=== PATIENT | female | born 1955 | race Caucasian/White ===

== ENCOUNTER 2017-04-14 12:49 | Observation (INO) | payer MEDICARE, OTHER ==
[~2017-04-14] VITALS: Ht 154.9 cm; Wt 93.0 kg
[~2017-04-14 12:49] MED LIST: ALBUTERO1 IN; ALBUTEROL2.5 MG/3 M IN; ARIMIDEX1 MG PO; ASA/BUT/CAFF OR; AVELOX400 MG OR; CALCIUM + D600 MG PO; CARAFATE1 GM PO; CIPRO500 MG PO; CIPROFLOXACN500 MG PO; FOLIC ACID1 MG PO; GABAPENTIN300 MG PO; LISINOPRIL/HYDR1 TA1 PO; MEDDOSEPAK OR; METFORMIN500 MG OR; METRONIDAZOL500 MG PO; Metformin PO; NEURONTIN300 MG PO; NITROFURANTO100 MG OR; OMEPRAZOLE20 MG OR; PERCOCET 5/325M1 TAB OR; PRINZIDE1 TA1 OR; SIMVASTATIN20 MG PO; TAM75CAP OR; ULTRAM50 M1 PO; ZANTAC 150 PO; ZOFRAN ODT4 MG PO
[2017-04-14 14:12] LABS: IMMATURE GRANULOCYTES 0.7 % (0.0-1.0); MEAN CELL VOLUME 84.5 fL CALC (80.0-100.0); MEAN CORPUSCULAR HGB 26.8 pG CALC (26.0-32.0); MEAN CORPUSCULAR HGB CONC 31.7 g/L CALC (32.0-36.0); NEUT# 5.56 thou/uL (2.00-7.15); RED BLOOD COUNT 4.85 mill/uL (4.20-5.60); RED CELL DISTRI WIDTH 15.1 % (11.5-15.5)
[2017-04-14 14:27] LABS: ALBUMIN 3.6 g/dL (3.2-5.0); BILIRUBIN, TOTAL 0.5 mg/dL (0.0-1.4); CALCIUM 9.7 mg/dL (8.4-10.2); CREATININE 1.2 mg/dL (0.5-1.0); POTASSIUM 4.5 mmol/l (3.5-5.1); TOTAL PROTEIN 5.9 g/dL (6.3-8.2)
[2017-04-14 14:32] LABS: URINE BILIRUBIN - DIPSTICK NEGATIVE (NEGATIVE); URINE BLOOD DIPSTICK NEGATIVE (NEGATIVE); URINE CLARITY CLEAR; URINE COLOR YELLOW; URINE GLUCOSE - DIPSTICK NEGATIVE (NEGATIVE); URINE KETONE TRACE mg/dL (NEGATIVE); URINE LEUK ESTERASE NEGATIVE (NEGATIVE); URINE NITRITE - DIPSTICK NEGATIVE (Negative); URINE PROTEIN - DIPSTICK NEGATIVE (NEG-TRACE); URINE SPECIFIC GRAVITY 1.015; URINE UROBILINOGEN - DIPSTICK 0.2 E.U./dL (0.2)
[2017-04-14] MEDS ORDERED: OMEPRAZOLE10 MG PO (15:34)
[2017-04-14] MEDS ORDERED: CARAFATE1 GM PO (15:35)
[2017-04-14] MEDS ORDERED: BENAZEPRIL5 M1 PO (15:38)
[2017-04-14] MEDS ORDERED: HYDROCHLOROT12.5 M1 PO (15:40)
[2017-04-14] MEDS ORDERED: LASIX 20 MG20 MG/TAB PO (15:41)
[2017-04-14 17:50] VITALS: BP 141/50
[2017-04-14 19:29] VITALS: BP 108/58
[2017-04-15 02:25] LABS: C. DIFFICILE TOXIN A&B NEGATIVE (NEGATIVE)
[2017-04-15 04:23] VITALS: BP 124/69
[2017-04-15 06:11] LABS: HEMATOCRIT 39.4 % (37.0-47.0); HEMOGLOBIN 12.4 g/dl (12.0-16.0); MEAN CORPUSCULAR HGB 27.4 pG CALC (26.0-32.0); MEAN CORPUSCULAR HGB CONC 31.5 g/L CALC (32.0-36.0); RED BLOOD COUNT 4.53 mill/uL (4.20-5.60); RED CELL DISTRI WIDTH 15.4 % (11.5-15.5)
[2017-04-15 06:20] LABS: ANION GAP 12 (6-22 (CALC)); BUN 21 mg/dL (8-23); BUN/CREATININE RATIO 21 (12-20 (CALC)); CALCIUM 8.9 mg/dL (8.4-10.2); CARBON DIOXIDE 27 mmol/l (22-30); CHLORIDE 106 mmol/l (95-108); GFR 56 ML/MIN (>=60 (CALC)); GFR FOR AFR.AMER. > 60 ML/MIN (>=60 (CALC)); GLUCOSE 95 mg/dL (82-115); POTASSIUM 4.3 mmol/l (3.5-5.1); SODIUM 140 mmol/l (137-146)
[2017-04-15 07:20] VITALS: BP 141/70
[2017-04-15 08:23] VITALS: BP 141/70
[2017-04-15] MEDS ORDERED: METRONIDAZOL500 MG PO (10:48)
[2017-04-15] MEDS ORDERED: CIPROFLOXACN500 MG PO (10:48)
== END 2017-04-15 13:45 | disposition home or self-care (01) ==
LOC: ED 12:49 → ED-I 16:23 → ED 17:15 → MS2 17:16
PROVIDERS: Emergency Medicine; ADMIT Internal Medicine; ATTEND Internal Medicine
DX: R10.84 Generalized abdominal pain (principal); R11.2 Nausea with vomiting, unspecified; I10 Essential (primary) hypertension; E11.9 Type 2 diabetes mellitus without complications; Z85.42 Personal history of malignant neoplasm of other parts of uterus; Z79.84 Long term (current) use of oral hypoglycemic drugs

== ENCOUNTER 2017-11-29 12:49 | Emergency (ER) | payer MEDICARE, OTHER ==
[~2017-11-29] VITALS: Ht 154.9 cm; Wt 75.0 kg
[~2017-11-29 12:49] MED LIST changes: +BENAZEPRIL5 M1 PO; +HYDROCHLOROT12.5 M1 PO; +LASIX 20 MG20 MG/TAB PO; +OMEPRAZOLE10 MG PO
[2017-11-29 13:45] LABS: HEMATOCRIT 38.6 % (37.0-47.0); HEMOGLOBIN 12.2 g/dl (12.0-16.0); IMMATURE GRANULOCYTES 0.6 % (0.0-1.0); MEAN CELL VOLUME 87.3 fL CALC (80.0-100.0); MEAN CORPUSCULAR HGB 27.6 pG CALC (26.0-32.0); MEAN CORPUSCULAR HGB CONC 31.6 g/L CALC (32.0-36.0); NEUT# 5.54 thou/uL (2.00-7.15); RED BLOOD COUNT 4.42 mill/uL (4.20-5.60); RED CELL DISTRI WIDTH 14.3 % (11.5-15.5)
[2017-11-29 13:57] LABS: ALBUMIN 3.2 g/dL (3.2-5.0); ALKALINE PHOSPHATASE 70 u/l (38-126); ANION GAP 12 (6-22 (CALC)); BILIRUBIN, TOTAL 0.4 mg/dL (0.0-1.4); BUN 27 mg/dL (8-23); BUN/CREATININE RATIO 35 (12-20 (CALC)); CARBON DIOXIDE 26 mmol/l (22-30); CHLORIDE 104 mmol/l (95-108); CREATININE 0.8 mg/dL (0.5-1.0); GFR > 60 ML/MIN (>=60 (CALC)); GFR FOR AFR.AMER. > 60 ML/MIN (>=60 (CALC)); LIPASE 49 u/l (23-300); POTASSIUM 4.2 mmol/l (3.5-5.1); SGOT/AST 17 u/l (9-36); SGPT/ALT 35 u/l (11-66); SODIUM 138 mmol/l (137-146); TOTAL PROTEIN 5.7 g/dL (6.3-8.2)
[2017-11-29] MEDS ORDERED: ONDANSETRON4 MG PO (14:21)
[2017-11-29 15:22] VITALS: BP 139/67
== END 2017-11-29 15:22 | disposition home or self-care (01) ==
LOC: ED 12:49
PROVIDERS: Emergency Medicine
DX: R11.2 Nausea with vomiting, unspecified (principal); I11.9 Hypertensive heart disease without heart failure; E11.9 Type 2 diabetes mellitus without complications; Z85.9 Personal history of malignant neoplasm, unspecified

== ENCOUNTER 2018-06-22 17:22 | Emergency (ER) | payer MEDICARE, OTHER ==
[~2018-06-22] VITALS: Ht 154.9 cm; Wt 93.0 kg
[~2018-06-22 17:22] MED LIST changes: +ONDANSETRON4 MG PO
[2018-06-22 19:41] LABS: HEMATOCRIT 39.1 % (37.0-47.0); HEMOGLOBIN 12.6 g/dl (12.0-16.0); IMMATURE GRANULOCYTES 0.5 % (0.0-5.0); MEAN CELL VOLUME 89.7 fL CALC (80.0-100.0); MEAN CORPUSCULAR HGB 28.9 pG CALC (26.0-32.0); MEAN CORPUSCULAR HGB CONC 32.2 g/L CALC (32.0-36.0); NEUT# 5.85 thou/uL (2.00-7.15); RED BLOOD COUNT 4.36 mill/uL (4.20-5.60); RED CELL DISTRI WIDTH 15.7 % (11.5-15.5)
[2018-06-22 19:58] LABS: ALBUMIN 3.4 g/dL (3.2-5.0); ALKALINE PHOSPHATASE 75 u/l (38-126); AMYLASE 45 u/l (30-110); ANION GAP 12 (6-22 (CALC)); BILIRUBIN, TOTAL 0.5 mg/dL (0.0-1.4); BUN 26 mg/dL (8-23); BUN/CREATININE RATIO 32 (12-20 (CALC)); CARBON DIOXIDE 27 mmol/l (22-30); CHLORIDE 103 mmol/l (95-108); CREATININE 0.8 mg/dL (0.5-1.0); GFR > 60 ML/MIN (>=60 (CALC)); GFR FOR AFR.AMER. > 60 ML/MIN (>=60 (CALC)); LIPASE 46 u/l (23-300); POTASSIUM 4.1 mmol/l (3.5-5.1); SGOT/AST 18 u/l (9-36); SODIUM 138 mmol/l (137-146); TOTAL PROTEIN 5.7 g/dL (6.3-8.2)
[2018-06-22 20:50] LABS: URINE BILIRUBIN - DIPSTICK NEGATIVE (NEGATIVE); URINE BLOOD DIPSTICK TRACE-INTACT (NEGATIVE); URINE COLOR YELLOW; URINE GLUCOSE - DIPSTICK NEGATIVE (NEGATIVE); URINE KETONE 15 mg/dL (NEGATIVE); URINE NITRITE - DIPSTICK NEGATIVE (Negative); URINE PROTEIN - DIPSTICK TRACE mg/dL (NEG-TRACE); URINE SPECIFIC GRAVITY >=1.030; URINE UROBILINOGEN - DIPSTICK 0.2 E.U./dL (0.2)
[2018-06-22 20:51] LABS: URINE LEUK ESTERASE SMALL (NEGATIVE)
[2018-06-22 20:52] LABS: URINE RBC 0-2 RBC/hpf (0-5); URINE SQUAMOUS EPITHELIAL CELL FEW EPI/hpf (0-FEW)
[2018-06-22 21:25] VITALS: BP 103/71
== END 2018-06-22 21:27 | disposition home or self-care (01) ==
LOC: ED 17:22
PROVIDERS: Family Medicine
DX: K52.9 Noninfective gastroenteritis and colitis, unspecified (principal); E11.9 Type 2 diabetes mellitus without complications; I10 Essential (primary) hypertension; J44.9 Chronic obstructive pulmonary disease, unspecified; Z85.9 Personal history of malignant neoplasm, unspecified

== ENCOUNTER 2018-06-23 18:08 | Inpatient (IN) | payer MEDICARE, OTHER ==
[~2018-06-23] VITALS: Ht 154.9 cm; Wt 95.0 kg
--- NOTE | 2018-06-23 18:25 | NUR ---
PATIENT AMBULATED TO ROOM WITH STEADY GAIT AND PHYSICIAN NOTIFIED OF PATIENT STATUS
--- NOTE | 2018-06-23 19:00 | NUR ---
REPORT GIVEN TO ROSARIO RICHARD. CARE RELINQUISHED.
[2018-06-23 19:12] LABS: HEMATOCRIT 40.6 % (37.0-47.0); HEMOGLOBIN 13.1 g/dl (12.0-16.0); IMMATURE GRANULOCYTES 0.5 % (0.0-5.0); MEAN CELL VOLUME 89.8 fL CALC (80.0-100.0); MEAN CORPUSCULAR HGB CONC 32.3 g/L CALC (32.0-36.0); NEUT# 6.06 thou/uL (2.00-7.15); RED BLOOD COUNT 4.52 mill/uL (4.20-5.60); RED CELL DISTRI WIDTH 15.5 % (11.5-15.5)
--- NOTE | 2018-06-23 19:13 | NUR ---
A/O F WITH RECURRENT ABD PAIN NAUSEA.
[2018-06-23 19:23] LABS: ALBUMIN 3.3 g/dL (3.2-5.0); ALKALINE PHOSPHATASE 61 u/l (38-126); ANION GAP 12 (6-22 (CALC)); BILIRUBIN, TOTAL 0.7 mg/dL (0.0-1.4); BUN 24 mg/dL (8-23); BUN/CREATININE RATIO 31 (12-20 (CALC)); CARBON DIOXIDE 25 mmol/l (22-30); CHLORIDE 104 mmol/l (95-108); CREATININE 0.8 mg/dL (0.5-1.0); GFR > 60 ML/MIN (>=60 (CALC)); GFR FOR AFR.AMER. > 60 ML/MIN (>=60 (CALC)); LIPASE 34 u/l (23-300); POTASSIUM 4.2 mmol/l (3.5-5.1); SGOT/AST 19 u/l (9-36); SODIUM 138 mmol/l (137-146); TOTAL PROTEIN 5.6 g/dL (6.3-8.2)
--- NOTE | 2018-06-23 21:20 | NUR ---
NG TP GASTRUM PER Isael CHANDLER [IRATED 400CC RONI RIOSQ. TO LIS
--- NOTE | 2018-06-23 21:30 | NUR ---
PHONE REPORT TO COURTNEY PAT ON MS2
--- NOTE | 2018-06-23 21:35 | NUR ---
TO MS VIA STRETCHER IN STABLE CONDITION
[2018-06-23 21:40] VITALS: BP 125/74
--- NOTE | 2018-06-23 22:00 | NUR ---
PT ARRIVED ON FLOOR AT 2140 VIA STRETCHER. PT ALERT ORIENTED. ABLE TO VOICE NEEDS. LUNGS CTA. BOWEL SOUNDS HYPOACTIVE. LAST BM 06/21. PULSES PRESENT IN UPPER AND LEFT LOWER EXTREM. R FOOT NOT PALPABLE. WILL CLARIGY WITH DOPPLER. R LEG ENLARGERED FROM LYMPHEDEMA. PT HAS SHINGLES TO L POSTERIOR FLANK AREA. SCAB PRESENT IN LOWER MID BACK. PHOTO OBTAINED. PT HAS NG TUBE TO LIS. WITH BROWN DRAINAGE NOTED. PT HAS A R CHEST POST THAT WAS ACCESSED IN ER. ASSESSMENT OBTAINED. POC REVIEWED. PT ORIENTED TO ROOM. PT VOICED UNDERSTANDING. CALL LIGHT WITHIN REACH. BED IN LOWEST POSITON. EDUCATED TO ASK FOR HELP WHEM AMBULATION IS REQUIRED. SAFETY PIN PROVIDED TO KEEP NG TUBE IN PLACE. WILL MONITOR.
--- NOTE | 2018-06-23 23:14 | NUR ---
PT PULSE IN R FOOT VERIFIED WITH DOPPLER. FOOT MARKED WITH MARKER.
[2018-06-24 00:10] VITALS: BP 156/60
--- NOTE | 2018-06-24 00:48 | NUR ---
pt assisted to bsc. educated to keep hob elevated. pt voiced understanding. will monitor.
[2018-06-24 04:21] VITALS: BP 159/86
[2018-06-24 05:54] LABS: HEMATOCRIT 37.4 % (37.0-47.0); IMMATURE GRANULOCYTES 0.4 % (0.0-5.0); MEAN CELL VOLUME 90.3 fL CALC (80.0-100.0); MEAN CORPUSCULAR HGB CONC 32.1 g/L CALC (32.0-36.0); NEUT# 4.14 thou/uL (2.00-7.15); RED BLOOD COUNT 4.14 mill/uL (4.20-5.60); RED CELL DISTRI WIDTH 15.7 % (11.5-15.5)
--- NOTE | 2018-06-24 06:17 | NUR ---
PT ASSISTED TO RESTROOM. NO PAIN OR DISTRESS NOTED. PT HAD BM THIS MORNING. LARGE SOFT STOOL. LIGHT BROWN IN COLOR. PT ASSISTED BACK TO BED. DRAINAGE IN CANISTER IS 500ML AT THIS TIME. WILL MONITOR.
[2018-06-24 06:31] LABS: ALBUMIN 2.9 g/dL (3.2-5.0); ALKALINE PHOSPHATASE 54 u/l (38-126); ANION GAP 11 (6-22 (CALC)); BILIRUBIN, TOTAL 0.5 mg/dL (0.0-1.4); BUN 25 mg/dL (8-23); BUN/CREATININE RATIO 29 (12-20 (CALC)); CARBON DIOXIDE 28 mmol/l (22-30); CHLORIDE 104 mmol/l (95-108); CREATININE 0.9 mg/dL (0.5-1.0); GFR > 60 ML/MIN (>=60 (CALC)); GFR FOR AFR.AMER. > 60 ML/MIN (>=60 (CALC)); POTASSIUM 4.2 mmol/l (3.5-5.1); SGOT/AST 16 u/l (9-36); SODIUM 138 mmol/l (137-146); TOTAL PROTEIN 5.1 g/dL (6.3-8.2)
--- NOTE | 2018-06-24 07:05 | NUR ---
REPORT RECEIVED BY COLEEN. PT IS RESTING IN BED WITH NO S/S OF DISTRESS NOTED. NG IN PLACE. PT DENIES NEEDS AT THIS TIME. CALL LIGHT IN REACH.
[2018-06-24 07:38] VITALS: BP 115/58
--- NOTE | 2018-06-24 08:15 | NUR ---
ASSESSMENT DONE PT IS A&O X3 . PT DENIES PAIN AT THIS TIME. RESPS EVEN AND UNLABORED. IVF INFUSING WELL. NG IN PLACE IN RIGHT NARE WITH LIGHT BROWN FLUID NOTED. PT DENIES NEEDS AT THIS TIME. SAFETY PRECAUTIONS REINFORCED AND CALL LIGHT IN REACH.
--- NOTE | 2018-06-24 09:50 | NUR ---
DR. MILLARD AT BEDSIDE TO ASSESS PT. NG IN PLACE WITH BROWN THICK FLUID NOTED. LOW SUCTION IN PLACE. STATED THAT DOCTOR CORNEJO IS ON CONSULT AND HE IS AWARE OF PT PER ER YESTERDAY. NO NEW ORDERS RECEIVED AT THIS TIME. CALL LIGHT IN REACH.
--- NOTE | 2018-06-24 12:00 | NUR ---
PT IS RESTING IN BED WITH NO S/S OF DISTRESS NOTED. PT DENIES PAIN AT THIS TIME. NG IN PLACE. PT DENIES ANY NEEDS AT THIS TIME. CALL LIGHT IN REACH.
--- NOTE | 2018-06-24 12:50 | NUR ---
DR. CORNEJO AT BEDSIDE TO ASSESS PT. ORDERS RECEIVED.
--- NOTE | 2018-06-24 14:00 | NUR ---
JONATHON FROM X-RAY CALLED STATED PER RADIOLOGIST PT HAS TO BE PREMEDICATED FOR ORAL CONTRAST ALLERGIES. NOITIFED . STATED HE WILL CALL THE RADIOLOGIST.
--- NOTE | 2018-06-24 14:31 | NUR ---
FIRST DOSE OF 8ML GASTROGRAFIN GIVEN VIA NG TUBE AND SUCTION STOPPED. PT TOLERATED WELL. DAUGHTER IN ROOM. PT DOING ORAL CARE AT THIS TIME. PT DENIES ANY OTHER NEEDS AT THIS TIME. CALL LIGHT IN REACH.
[2018-06-24 15:10] VITALS: BP 114/70
--- NOTE | 2018-06-24 15:50 | NUR ---
PT COMPLETED WITH LAST DOSE 8ML GASTROGRAFIN VIA NG TUBE. PT TOLERATED WELL. FAMILY IN ROOM VISITING WITH PT. PT DENIES NEEDS AT THIS TIME. CALL LIGHT IN REACH.
--- NOTE | 2018-06-24 17:56 | NUR ---
PT GOING DOWN TO CT VIA WHEELCHAIR BY RESEARCH PHYSICIAN.
[2018-06-24 19:28] VITALS: BP 142/80
--- NOTE | 2018-06-24 20:00 | NUR ---
PATIENT SITTING UP IN THE RECLINER AT THIS TIME-AWAKE ALERT AND ORIENTEDX3 WITH NGT CLAMPED AT THIS TIME. PATIENT HAS HAD MULTIPLE LOOSE BM SINCE RETURNING FROM CT ABD EARLIER TONIGHT. PATIENT IS NPO AT THIS TIME. ABD IS SOFT AND TENDER WITH HYPERACTIVE BS AT THIS TIME. IV SITE TO RIGHT CHEST PORT WITH IVF D51/2NS 40KCL PATENT AND INFUSING AT 75CC/HR. SITE APPEARS HEALTHY AT THIS TIME. RIGHT LE WITH CHRONIC EDEMA PER PATIENT FROM PREVIOUS SURGERY. PATIENT STATES THAT SHE IS RECOVERING FROM SHIGLES WITH SMALL ARE OF RASH TO LEFT BACK. DR. CORNEJO CALLED AND LEFT MESSAGE TO CALL BACK FOR RESULTS OF TONIGHTS ABD CT. SAFETY PRECAUTIONS REINFORCED.CALL LIGHT IN REACH. WILL CONT TO MONITOR.
--- NOTE | 2018-06-24 21:09 | NUR ---
SPOKE WITH DR. CHANTAL HOWARD CT ABD RESULTS. ORDERS RECIEVED AND NG TUBE D/C'ED. PATIENT STARTING ON CLEAR LIQUIDS WITH ICE CHIPS. CONT TO HAVE LOOSE STOOLS. SITTING UP IN THE CHAIR. PATIENT WITH RASH TO LEFT SIDE OF LOWER BACK-STATES THAT SHE WAS TREATED FOR SHINGLES AND FINISHED TREATMENT LAST WEEK. CALL LIGHT IN REACH. WILL CONT TO MONITOR.
[2018-06-24 23:28] VITALS: BP 133/65
--- NOTE | 2018-06-25 00:42 | NUR ---
PATIENT SITTING UP IN CHAIR-DENIES ANY PAIN OR N/V. TOLERATEING ICE CHIP AND PROVIDED WITH PORTUGUESE ICE. IVF PATENT AND INFUSING VIA RIGHT UPPER CHEST PORT AT 75CC/HR. STATES THAT THE LOOSE STOOLS HAVE SLOWED DOWN. CALL LIGHT IN REACH. WILL CONT TO MONITOR.
--- NOTE | 2018-06-25 02:36 | NUR ---
PATIENT RESTING IN BED AND APPEARS SLEEPING WITH EYES CLOSED. IVF PATENT AND INFUSING VIA RIGHT UPPER PORT AT 75CC/HR. SITE APPEARS HEALTHY AT THIS TIME. CALL LIGHT IN REACH. WILL CONT TO MONITOR.
[2018-06-25 04:17] VITALS: BP 119/54
--- NOTE | 2018-06-25 04:30 | NUR ---
PATIENT RESTING IN BED-NO COMPLAINTS AT THIS TIME. LAB WORK DRAWN FROM RIGHT UPPER CHEST PORT WITHOUT ANY DIFFICULTY. SAFETY PRECAUTIONS REINFORCED. CALL LIGHT IN REACH. WILL CONT TO MONITOR.
[2018-06-25 05:47] LABS: HEMATOCRIT 34.5 % (37.0-47.0); HEMOGLOBIN 11.1 g/dl (12.0-16.0); IMMATURE GRANULOCYTES 0.5 % (0.0-5.0); MEAN CORPUSCULAR HGB 29.6 pG CALC (26.0-32.0); MEAN CORPUSCULAR HGB CONC 32.2 g/L CALC (32.0-36.0); NEUT# 2.55 thou/uL (2.00-7.15); RED BLOOD COUNT 3.75 mill/uL (4.20-5.60); RED CELL DISTRI WIDTH 15.8 % (11.5-15.5)
[2018-06-25 05:51] LABS: ALBUMIN 2.6 g/dL (3.2-5.0); ALKALINE PHOSPHATASE 49 u/l (38-126); BILIRUBIN, TOTAL 0.4 mg/dL (0.0-1.4); BUN 18 mg/dL (8-23); BUN/CREATININE RATIO 22 (12-20 (CALC)); CARBON DIOXIDE 26 mmol/l (22-30); CHLORIDE 108 mmol/l (95-108); CREATININE 0.8 mg/dL (0.5-1.0); GFR > 60 ML/MIN (>=60 (CALC)); GFR FOR AFR.AMER. > 60 ML/MIN (>=60 (CALC)); MAGNESIUM 1.7 mg/dL (1.6-2.3); SGOT/AST 13 u/l (9-36); SODIUM 137 mmol/l (137-146); TOTAL PROTEIN 4.8 g/dL (6.3-8.2)
[2018-06-25 06:11] LABS: ANION GAP 8 (6-22 (CALC)); POTASSIUM 5.3 mmol/l (3.5-5.1)
--- NOTE | 2018-06-25 07:09 | NUR ---
REPORT RECEIVED BY LIONEL. PT IS RESTING IN BED AND DENIES NEEDS AT THIS TIME AND CALL LIGHT IN REACH.
[2018-06-25 07:38] VITALS: BP 120/65
--- NOTE | 2018-06-25 08:16 | NUR ---
ASSESSMENT DONE. PT IS A&O X3. RESPS EVEN AND UNLABORED. PT STATED SHE TOLERATED HER CLEAR DIET WELL. PT DENIES PAIN AT THIS TIME. IVF INFUSING WELL. SAFETY PRECAUTIONS REINFORCED AND CALL LIGHT IN REACH.
--- NOTE | 2018-06-25 11:05 | NUR ---
AT BEDSIDE TO ASSESS PT.
--- NOTE | 2018-06-25 12:50 | NUR ---
PT IS RESTING IN BED WITH NO S/S OF DISTRESS NOTED. PT DENIES NEEDS AT THIS TIME. CALL LIGHT IN REACH.
--- NOTE | 2018-06-25 16:06 | NUR ---
PT AMBULATING IN HER ROOM WITH NO S/S OF DISTRESS NOTED. PT DENIES PAIN AT THIS TIME. CALL LIGHT IN REACH.
[2018-06-25 16:26] VITALS: BP 112/40
--- NOTE | 2018-06-25 19:35 | NUR ---
BEDSIDE REPORT RECEIVED FROM ROSARIO SCHNEIDER. PT RESTING IN BED SEMI FOWLERS; ALERT AND OREINTED. RESPIRATIONS EVEN AND UNLABORED ON ROOM AIR. DENIES PAIN CURRENTLY. PT DENIES ANY NAUSEA SINCE EATING DINNER. PLAN OF CARE REVIEWED. PT ENCOURAGED TO VERBALIZE CONCERNS. STATES UNDERSTANDING. SAFETY MEASURES IN PLACE. CALL LIGHT WITHIN REACH.
[2018-06-25 20:15] VITALS: BP 150/72
--- NOTE | 2018-06-26 | NUR ---
PT REQUESTED CRACKERS BECAUSE SHE IS HUNGRY; TOLERATED WELL. NO OTHER REQUESTS OR CONCERNS AT THIS TIME. RESTING IN BED IN SEMI FOWLERS. ONE PERSON ASSIST TO BSC. PORT TO RIGHT CHEST FUSHES AND DRESSING IS CDI. SAFETY MEASURES IN PLACE. CALL LIGHT WITHIN REACH.
[2018-06-26 04:54] VITALS: BP 141/63
[2018-06-26 04:54] LABS: IMMATURE GRANULOCYTES 0.8 % (0.0-5.0); MEAN CELL VOLUME 91.4 fL CALC (80.0-100.0); MEAN CORPUSCULAR HGB 29.6 pG CALC (26.0-32.0); MEAN CORPUSCULAR HGB CONC 32.4 g/L CALC (32.0-36.0); NEUT# 2.43 thou/uL (2.00-7.15); RED BLOOD COUNT 3.72 mill/uL (4.20-5.60); RED CELL DISTRI WIDTH 15.4 % (11.5-15.5)
--- NOTE | 2018-06-26 04:57 | NUR ---
RIGHT PORT HAS GOOD BLOOD RETURN; LAB WORK DRAWN FROM SITE AND FLUSHED WITH SALINE AND HEPARIN PER PROTOCOL. PT AWAKENS SPONTANEOUSLY. NO REQUESTS OR CONCERNS AT THIS TIME. INDEPENDENT IN ROOM. SAFETY MEAURES IN PLACE. CALL LIGHT WITHIN REACH.
[2018-06-26 05:30] LABS: ALBUMIN 2.6 g/dL (3.2-5.0); ALKALINE PHOSPHATASE 56 u/l (38-126); ANION GAP 8 (6-22 (CALC)); BILIRUBIN, TOTAL 0.2 mg/dL (0.0-1.4); BUN 12 mg/dL (8-23); BUN/CREATININE RATIO 14 (12-20 (CALC)); CARBON DIOXIDE 28 mmol/l (22-30); CHLORIDE 108 mmol/l (95-108); CREATININE 0.8 mg/dL (0.5-1.0); GFR > 60 ML/MIN (>=60 (CALC)); GFR FOR AFR.AMER. > 60 ML/MIN (>=60 (CALC)); MAGNESIUM 1.8 mg/dL (1.6-2.3); POTASSIUM 4.5 mmol/l (3.5-5.1); SGOT/AST 14 u/l (9-36); SODIUM 139 mmol/l (137-146); TOTAL PROTEIN 4.8 g/dL (6.3-8.2)
--- NOTE | 2018-06-26 06:57 | NUR ---
REPORT RECEIVED BY CINDY. PT IN THE BATHROOM AND DENIES NEEDS AT THIS TIME.
[2018-06-26 08:04] VITALS: BP 145/70
--- NOTE | 2018-06-26 08:05 | NUR ---
ASSESSMENT DONE. PT IS A&O X3. PT DENIES PAIN AT THIS TIME. RIGHT CHEST PORT APPEARS HEALTHY. RESPS EVEN AND UNLABORED. PT DENIES NEEDS AT THIS TIME. SAFETY PRECAUTIONS REINFORCED AND CALL LIGHT IN REACH.
[2018-06-26 08:16] VITALS: BP 145/70
--- NOTE | 2018-06-26 12:42 | NUR ---
Discharge instructions given. Patient verbalizes understanding of same. Discharged in stable condition via Wheelchair to Home with staff. All belongings sent with pt.
== END 2018-06-26 12:42 | disposition home or self-care (01) | DRG 390 ==
LOC: ED 18:08 → ED-I 18:46 → ED 18:46 → ED-I 20:33 → ED 21:05 → MS2 21:06
PROVIDERS: ADMIT Internal Medicine Nephrology; ATTEND Internal Medicine Nephrology
DX: K56.50 Intestinal adhesions [bands], unspecified as to partial versus complete obstruction (principal); I10 Essential (primary) hypertension; E11.40 Type 2 diabetes mellitus with diabetic neuropathy, unspecified; I89.0 Lymphedema, not elsewhere classified; J44.9 Chronic obstructive pulmonary disease, unspecified; K57.30 Diverticulosis of large intestine without perforation or abscess without bleeding; K21.9 Gastro-esophageal reflux disease without esophagitis; E78.5 Hyperlipidemia, unspecified; Z85.42 Personal history of malignant neoplasm of other parts of uterus; Z90.710 Acquired absence of both cervix and uterus; Z79.84 Long term (current) use of oral hypoglycemic drugs
CPT/HCPCS: J1650; J3475; S0164

== ENCOUNTER 2018-10-22 17:57 | Emergency (ER) | payer MEDICARE, OTHER ==
[~2018-10-22] VITALS: Ht 154.9 cm; Wt 106.0 kg
[2018-10-22 19:04] LABS: URINE BILIRUBIN - DIPSTICK NEGATIVE (NEGATIVE); URINE BLOOD DIPSTICK TRACE-LYSED (NEGATIVE); URINE COLOR YELLOW; URINE GLUCOSE - DIPSTICK NEGATIVE (NEGATIVE); URINE KETONE TRACE mg/dL (NEGATIVE); URINE LEUK ESTERASE NEGATIVE (NEGATIVE); URINE NITRITE - DIPSTICK NEGATIVE (Negative); URINE PROTEIN - DIPSTICK NEGATIVE (NEG-TRACE); URINE SPECIFIC GRAVITY 1.015; URINE UROBILINOGEN - DIPSTICK 0.2 E.U./dL (0.2)
[2018-10-22 19:06] LABS: HEMOGLOBIN 12.4 g/dl (12.0-16.0); IMMATURE GRANULOCYTES 0.7 % (0.0-5.0); MEAN CELL VOLUME 87.6 fL CALC (80.0-100.0); MEAN CORPUSCULAR HGB CONC 30.8 g/L CALC (32.0-36.0); NEUT# 6.03 thou/uL (2.00-7.15); RED BLOOD COUNT 4.59 mill/uL (4.20-5.60); RED CELL DISTRI WIDTH 14.6 % (11.5-15.5)
[2018-10-22 19:08] LABS: HEMATOCRIT 40.2 % (37.0-47.0)
[2018-10-22 19:25] LABS: ALKALINE PHOSPHATASE 80 u/l (38-126); ANION GAP 14 (6-22 (CALC)); BILIRUBIN, TOTAL 0.5 mg/dL (0.0-1.4); BUN 26 mg/dL (8-23); BUN/CREATININE RATIO 25 (12-20 (CALC)); CARBON DIOXIDE 25 mmol/l (22-30); CHLORIDE 102 mmol/l (95-108); GFR 56 ML/MIN (>=60 (CALC)); GFR FOR AFR.AMER. > 60 ML/MIN (>=60 (CALC)); LIPASE 87 u/l (23-300); POTASSIUM 4.5 mmol/l (3.5-5.1); SGOT/AST 20 u/l (9-36); SODIUM 137 mmol/l (137-146); TOTAL PROTEIN 6.3 g/dL (6.3-8.2)
[2018-10-22] MEDS ORDERED: REGLAN10 MG PO (21:37)
[2018-10-22 22:00] VITALS: BP 139/68
== END 2018-10-22 22:10 | disposition home or self-care (01) ==
LOC: ED 17:57
DX: K59.00 Constipation, unspecified (principal); R10.13 Epigastric pain; R11.2 Nausea with vomiting, unspecified

== ENCOUNTER 2019-04-10 11:44 | Emergency (ER) | payer MEDICARE, OTHER ==
[~2019-04-10] VITALS: Ht 157.5 cm; Wt 100.0 kg
[~2019-04-10 11:44] MED LIST changes: +REGLAN10 MG PO
[2019-04-10 12:17] LABS: HEMATOCRIT 43.1 % (37.0-47.0); HEMOGLOBIN 13.4 g/dl (12.0-16.0); IMMATURE GRANULOCYTES 1.3 % (0.0-5.0); MEAN CELL VOLUME 88.1 fL CALC (80.0-100.0); MEAN CORPUSCULAR HGB 27.4 pG CALC (26.0-32.0); MEAN CORPUSCULAR HGB CONC 31.1 g/L CALC (32.0-36.0); NEUT# 4.58 thou/uL (2.00-7.15); RED BLOOD COUNT 4.89 mill/uL (4.20-5.60); RED CELL DISTRI WIDTH 14.6 % (11.5-15.5)
[2019-04-10 12:43] LABS: ALBUMIN 4.1 g/dL (3.2-5.0); ALKALINE PHOSPHATASE 85 u/l (38-126); ANION GAP 19 (6-22 (CALC)); BILIRUBIN, TOTAL 0.4 mg/dL (0.0-1.4); BUN 32 mg/dL (8-23); BUN/CREATININE RATIO 27 (12-20 (CALC)); CARBON DIOXIDE 25 mmol/l (22-30); CHLORIDE 99 mmol/l (95-108); CREATININE 1.2 mg/dL (0.5-1.0); GFR 45 ML/MIN (>=60 (CALC)); GFR FOR AFR.AMER. 55 ML/MIN (>=60 (CALC)); POTASSIUM 4.8 mmol/l (3.5-5.1); SGOT/AST 28 u/l (9-36); SODIUM 138 mmol/l (137-146)
[2019-04-10 12:54] LABS: MYOGLOBIN 54 ng/mL (0 - 62)
[2019-04-10 13:35] VITALS: BP 97/64
[2019-04-10 14:09] LABS: URINE BILIRUBIN - DIPSTICK NEGATIVE (NEGATIVE); URINE BLOOD DIPSTICK NEGATIVE (NEGATIVE); URINE COLOR YELLOW; URINE GLUCOSE - DIPSTICK NEGATIVE (NEGATIVE); URINE KETONE NEGATIVE (NEGATIVE); URINE LEUK ESTERASE NEGATIVE (NEGATIVE); URINE NITRITE - DIPSTICK NEGATIVE (Negative); URINE PH 5.5 (4.5-8.0); URINE PROTEIN - DIPSTICK NEGATIVE (NEG-TRACE); URINE UROBILINOGEN - DIPSTICK 0.2 E.U./dL (0.2)
== END 2019-04-10 13:35 | disposition short-term general hospital (02) ==
LOC: ED 11:44
PROVIDERS: Emergency Medicine
DX: R41.82 Altered mental status, unspecified (principal); G93.9 Disorder of brain, unspecified; E11.9 Type 2 diabetes mellitus without complications; I10 Essential (primary) hypertension; J44.9 Chronic obstructive pulmonary disease, unspecified; J95.811 Postprocedural pneumothorax; Y84.8 Other medical procedures as the cause of abnormal reaction of the patient, or of later complication, without mention of misadventure at the time of the procedure; C55 Malignant neoplasm of uterus, part unspecified; C78.00 Secondary malignant neoplasm of unspecified lung; I89.0 Lymphedema, not elsewhere classified; R53.1 Weakness

== ENCOUNTER → 2022-03-22 | Day surgery (SDC) | payer MEDICARE, OTHER ==
[~2022-03-22] VITALS: Ht 154.9 cm; Wt 86.6 kg
[2022-03-22 09:32] VITALS: BP 121/67
== END | disposition home or self-care (01) ==
LOC: ORM 03-19 10:00 → ENDO 07:00 → ORM 12:00
PROVIDERS: ATTEND Internal Medicine Gastroenterology
PROC: 0DJD8ZZ Inspection of Lower Intestinal Tract, Via Natural or Artificial Opening Endoscopic (ICD-10-PCS; principal; 2022-03-22)
PROC: 0DB68ZX Excision of Stomach, Via Natural or Artificial Opening Endoscopic, Diagnostic (ICD-10-PCS; 2022-03-22)
PROC: 0DB78ZX Excision of Stomach, Pylorus, Via Natural or Artificial Opening Endoscopic, Diagnostic (ICD-10-PCS; 2022-03-22)
DX: Z12.11 Encounter for screening for malignant neoplasm of colon (principal); K57.30 Diverticulosis of large intestine without perforation or abscess without bleeding; K63.89 Other specified diseases of intestine; K29.50 Unspecified chronic gastritis without bleeding; B96.81 Helicobacter pylori [H. pylori] as the cause of diseases classified elsewhere; K44.9 Diaphragmatic hernia without obstruction or gangrene; K31.7 Polyp of stomach and duodenum; G62.0 Drug-induced polyneuropathy; E78.5 Hyperlipidemia, unspecified; I10 Essential (primary) hypertension; E11.9 Type 2 diabetes mellitus without complications; Z86.010 Personal history of colon polyps
CPT/HCPCS: 43239; G0104

== ENCOUNTER 2022-08-20 02:03 | Observation (INO) | payer MEDICARE, OTHER ==
[~2022-08-20] VITALS: Ht 157.5 cm; Wt 84.2 kg
[~2022-08-20 02:03] MED LIST changes: +BENAZEPRIL10 M1 PO; -BENAZEPRIL5 M1 PO
[2022-08-20 02:51] LABS: BASO% 0.2 % (0-3); EOS% 0.3 % (0-8); HEMATOCRIT 38.7 % (37.0-47.0); HEMOGLOBIN 11.3 g/dl (12.0-16.0); IMMATURE GRANULOCYTES 1.3 % (0.0-5.0); LYMPH% 4.3 % (15-41); MEAN CELL VOLUME 84.1 fL CALC (80.0-100.0); MEAN CORPUSCULAR HGB 24.6 pG CALC (26.0-32.0); MEAN CORPUSCULAR HGB CONC 29.2 g/dL CAL (32.0-36.0); MONO% 6.6 % (2-13); NEUT# 8.63 thou/uL (2.00-7.15); NEUT% 87.3 % (42-76); RED BLOOD COUNT 4.6 mill/uL (4.20-5.60); RED CELL DISTRI WIDTH 14.9 % (11.5-15.5)
[2022-08-20 03:00] LABS: ALBUMIN 3.7 g/dL (3.2-5.0); CREATININE 1.1 mg/dL (0.5-1.0); POTASSIUM 4.1 mmol/l (3.5-5.1); TOTAL PROTEIN 6.6 g/dL (6.3-8.2)
[2022-08-20 03:07] LABS: BILIRUBIN, TOTAL 0.1 mg/dL (0.02-1.3)
[2022-08-20 05:58] LABS: URINE BILIRUBIN - DIPSTICK NEGATIVE (NEGATIVE); URINE COLOR YELLOW; URINE GLUCOSE - DIPSTICK NEGATIVE (NEGATIVE); URINE KETONE TRACE mg/dL (NEGATIVE); URINE PROTEIN - DIPSTICK NEGATIVE (NEG-TRACE); URINE UROBILINOGEN - DIPSTICK 0.2 E.U./dL (0.2)
[2022-08-20 06:22] LABS: URINE NITRITE - DIPSTICK NEGATIVE (Negative)
[2022-08-20 06:23] LABS: URINE LEUK ESTERASE SMALL (NEGATIVE)
[2022-08-20 06:24] LABS: URINE BACTERIA FEW hpf; URINE BLOOD DIPSTICK NEGATIVE (NEGATIVE); URINE EPITHELIAL CELLS FEW EPI/hpf (0-FEW)
--- NOTE | 2022-08-20 06:30 | NUR ---
PATIENT ADMITTED TO ROOM 264. ALERT AND ORIENTED. ABLE TO MAKE NEEDS KNOWN. ORIENTED PATIENT TO ROOM, CALL ROBERTS AND SURROUNDINGS. PATIENT NPO STATUS. DENIES ANY PAIN AT THIS TIME. BED REMAINS IN LOW POSITION. CALL ROBERTS IN REACH.
[2022-08-20 07:05] VITALS: BP 145/52
[2022-08-20 15:04] VITALS: BP 129/40
[2022-08-20 19:00] VITALS: BP 142/49
--- NOTE | 2022-08-20 19:50 | NUR ---
PATIENT RESTING IN RECLINER IN ROOM. ASSESSMENT COMPLETE. NO DISTRESS NOTED. NO COMPLAINTS OF PAIN NOTED TO ABDOMEN. PATIENT DID VOICE HAVING A BM TODAY. WENT OVER MED REQ WITH PATIENT AND INFORMED WIRE MILL ROVER MD. SANTACRUZ AND CALL ROBERTS IN REACH.
--- NOTE | 2022-08-20 20:55 | NUR ---
PATIENT IS IN BED WITH SIDE RAILS UP AND CALL ROBERTS IN REACH. REPORT GIVEN.
--- NOTE | 2022-08-21 00:15 | NUR ---
PATIENT LAYING IN BED WITH HER EYES CLOSED. NO DISTRESS NOTED. NO COMPLAINTS OF PAIN. BED REMAINS IN LOW POSITION. CALL ROBERTS IN REACH.
[2022-08-21 04:20] VITALS: BP 134/53
--- NOTE | 2022-08-21 04:35 | NUR ---
PATIENT REMAINS RESTING IN BED. NO ABDOMINAL PAIN VOICED. NO DISTRESS NOTED. BED REMAINS IN LOW POSITION. CALL ROBERTS IN REACH.
[2022-08-21 06:32] VITALS: BP 138/58
[2022-08-21 08:26] VITALS: BP 138/58
--- NOTE | 2022-08-21 14:16 | NUR ---
PATIENT DISCHARGE HOME SON PICKED HER UP. PIV REMOVED. DISCHARGE INSTRUCTIONS PROVIDED. ALL QUESTIONS ANSWERED.
== END 2022-08-21 14:16 | disposition home or self-care (01) ==
LOC: ED 02:03 → ED-I 05:17 → ED 05:43 → MS2 05:44
PROVIDERS: Emergency Medicine; ADMIT Internal Medicine; ATTEND Internal Medicine
DX: R10.33 Periumbilical pain (principal); R11.2 Nausea with vomiting, unspecified; I10 Essential (primary) hypertension; E11.9 Type 2 diabetes mellitus without complications; J44.9 Chronic obstructive pulmonary disease, unspecified; I89.0 Lymphedema, not elsewhere classified; K21.9 Gastro-esophageal reflux disease without esophagitis; Z85.42 Personal history of malignant neoplasm of other parts of uterus; Z87.19 Personal history of other diseases of the digestive system; Z79.84 Long term (current) use of oral hypoglycemic drugs

== ENCOUNTER 2022-11-30 08:04 | Inpatient (IN) | payer MEDICARE, OTHER ==
[~2022-11-30] VITALS: Ht 157.5 cm; Wt 82.0 kg
[2022-11-30] VITALS (14 sets, daily range): BP systolic 128–149; BP diastolic 42–77
--- NOTE | 2022-11-30 08:05 | NUR ---
PATIENT TO ROOM VIA WHEELCHAIR.
[2022-11-30 08:25] LABS: BASO% 0.4 % (0-3); EOS% 0.1 % (0-8); HEMATOCRIT 38.9 % (37.0-47.0); HEMOGLOBIN 11.8 g/dl (12.0-16.0); IMMATURE GRANULOCYTES 0.4 % (0.0-5.0); LYMPH% 7.1 % (15-41); MEAN CELL VOLUME 82.1 fL CALC (80.0-100.0); MEAN CORPUSCULAR HGB 24.9 pG CALC (26.0-32.0); MEAN CORPUSCULAR HGB CONC 30.3 g/dL CAL (32.0-36.0); NEUT# 6.36 thou/uL (2.00-7.15); RED BLOOD COUNT 4.74 mill/uL (4.20-5.60)
[2022-11-30 08:26] LABS: GFR FOR AFR.AMER. > 60 ML/MIN (>=60 (CALC)); GFR OTHER RACES 55 ML/MIN (>=60 (CALC))
[2022-11-30 08:38] LABS: ALBUMIN 3.9 g/dL (3.2-5.0); ALKALINE PHOSPHATASE 74 u/l (38-126); ANION GAP 15 (6-22 (CALC)); BILIRUBIN, TOTAL 0.4 mg/dL (0.02-1.3); BUN 16 mg/dL (8-23); BUN/CREATININE RATIO 17 (12-20 (CALC)); CARBON DIOXIDE 24 mmol/l (22-30); CHLORIDE 103 mmol/l (95-108); GFR FOR AFR.AMER. > 60 ML/MIN (>=60 (CALC)); GFR OTHER RACES 55 ML/MIN (>=60 (CALC)); LIPASE 60 u/l (23-300); POTASSIUM 4.2 mmol/l (3.5-5.1); SGOT/AST 23 u/l (9-36); SODIUM 138 mmol/l (137-146); TOTAL PROTEIN 6.2 g/dL (6.3-8.2)
--- NOTE | 2022-11-30 09:04 | NUR ---
PATIENT RESTING IN BED. EDUCATED ON PLAN OF CARE, FAMILY AT BEDSIDE
--- NOTE | 2022-11-30 10:20 | NUR ---
ASSUMED CARE OF THE PATIENT AT THIS TIME FROM [facility] PONCE. UA OBTAINED. PATIENT AWAITING CT SCAN.
[2022-11-30 11:06] LABS: URINE BILIRUBIN - DIPSTICK NEGATIVE (NEGATIVE); URINE BLOOD DIPSTICK NEGATIVE (NEGATIVE); URINE COLOR YELLOW; URINE GLUCOSE - DIPSTICK NEGATIVE (NEGATIVE); URINE KETONE 40 mg/dL (NEGATIVE); URINE LEUK ESTERASE NEGATIVE (NEGATIVE); URINE PROTEIN - DIPSTICK TRACE mg/dL (NEG-TRACE); URINE SPECIFIC GRAVITY 1.015; URINE UROBILINOGEN - DIPSTICK 0.2 E.U./dL (0.2)
[2022-11-30 11:07] LABS: URINE NITRITE - DIPSTICK NEGATIVE (Negative)
[2022-11-30] MEDS ORDERED: KLOR-CON M1010 MEQ PO (11:51)
--- NOTE | 2022-11-30 12:29 | NUR ---
DR. IGLESIAS AT THE BEDSIDE. HE DISCUSSED ADMISSION TO THE HOSPITAL.
--- NOTE | 2022-11-30 13:55 | NUR ---
NASAL GASTRIC TUBE PLACED AT THIS TIME. PLACEMENT VERIFIED BY ASCULTATION. CHEST XRAY ALSO ORDERED TO VERIFY PLACEMENT
--- NOTE | 2022-11-30 14:07 | NUR ---
VERBAL REPORT CALLED TO [facility]. PATIENT TRANSPORTED TO HER ADMISSION BED.
--- NOTE | 2022-11-30 14:23 | NUR ---
PATIENT RECIEVED FROM ER. REPORT RECIEVED. PATIENT IS AOX4, DENIES ANY PAIN AT THIS TIME. NG TUBE PRESENT AND HOOKED UP TO LOW INTERMIT SUCTION. VSS, DR BECKFORD AT BEDSIDE WITH PATIENT. FLUIDS STARTED. PORT WAS ACCESSED IN ED. PROTOCOL SENT TO PHARMACY. CALL LIGHT AND BEDSIDE TABLE WITH IN REACH. BED ALARM ON. PATIENT ADVISED TO CALL IF NEEDING ANYTHING. PATIENT VERBALIZED UNDERSTANDING.
--- NOTE | 2022-11-30 15:04 | NUR ---
PT'S WEIGHT IS 82.8 TAKEN ON STANDING SCALE.
--- NOTE | 2022-11-30 16:47 | NUR ---
PT'S GLUCOSE WAS 137 @1647. NURSE NOTIFIED.
[2022-12-01] VITALS (7 sets, daily range): BP systolic 112–137; BP diastolic 38–50
--- NOTE | 2022-12-01 01:26 | NUR ---
pt c/o of itching. no rash noted. order obtained for benadryl 50mg IV times 1 dose. given @ 9846
--- NOTE | 2022-12-01 01:29 | NUR ---
ngt to low wall suction maintained. frothy clear output. iv fluids at 125hr. voiding in bathroom. medicated for pain with dilaudid with good effect.
[2022-12-01 06:01] LABS: BASO% 0.2 % (0-3); IMMATURE GRANULOCYTES 0.7 % (0.0-5.0); LYMPH% 7.1 % (15-41); MEAN CELL VOLUME 84.4 fL CALC (80.0-100.0); MEAN CORPUSCULAR HGB 24.9 pG CALC (26.0-32.0); MEAN CORPUSCULAR HGB CONC 29.5 g/dL CAL (32.0-36.0); MONO% 10.4 % (2-13); NEUT# 4.46 thou/uL (2.00-7.15); NEUT% 81.6 % (42-76); RED BLOOD COUNT 3.53 mill/uL (4.20-5.60); RED CELL DISTRI WIDTH 16.4 % (11.5-15.5)
--- NOTE | 2022-12-01 06:14 | NUR ---
PT WITH NGT TO LOW WALL SUCTION DRAINED 100 CC CLEAR LIQUID. NO N/V THIS SHIFT. AMB TO BATHROOM WITH SUPERVISION. IV FLUIDS VIA PORT RT CHEST. RESTING/SLEEPING THIS SHIFT. CALL LIGHT IN REACH
[2022-12-01 06:34] LABS: ANION GAP 10 (6-22 (CALC)); BUN 20 mg/dL (8-23); BUN/CREATININE RATIO 22 (12-20 (CALC)); CARBON DIOXIDE 26 mmol/l (22-30); CHLORIDE 108 mmol/l (95-108); CREATININE 0.9 mg/dL (0.5-1.0); GFR FOR AFR.AMER. > 60 ML/MIN (>=60 (CALC)); GFR OTHER RACES > 60 ML/MIN (>=60 (CALC)); POTASSIUM 4.3 mmol/l (3.5-5.1); SODIUM 139 mmol/l (137-146)
[2022-12-01 06:36] LABS: HEMATOCRIT 29.8 % (37.0-47.0); HEMOGLOBIN 8.8 g/dl (12.0-16.0)
--- NOTE | 2022-12-01 08:00 | NUR ---
PT IN BED WITH HOB UP AWAKE , ALERT AND OREINTED X3. PT HAS NO C/O PAIN AT THIS TIME. NG IN PLACE ON LOW SUCTION WITH CLEAR OUTPUT AT 50ML IN CANISTER. PT HAS PORT IN RIGHT CHEST CLEAN AND INTACT WITH NS @ 125 ML/HR. PT HAS SCD ON LEFT LEG, UNABLE TO APPLY TO RIGHT LEG D/T LYMPHEDEMA. PT AMBULATES TO BATHROOM FOR TOILETING NEEDS. PT HAS CALL LIGHT WITHIN REACH AND ALL SAFETY MEASURES IN PLACE.
--- NOTE | 2022-12-01 11:00 | NUR ---
pt has walked by self to restroom and got a shower this am. pt ambulates by self in room.
--- NOTE | 2022-12-01 12:00 | NUR ---
PT IN BED RESTING WITH EYES CLOSED. PT AWAKENED WITH VERBAL STIMULI. PT HAS NO C/O PAIN AT THIS TIME. NG IN PLACE AND DRAINING SCANT AMOUNT OF CLEAR FLUID. PT HAS CALL LIGHT WITHIN REACH AND ALL SAFETY MEASURES IN PLACE.
--- NOTE | 2022-12-01 16:30 | NUR ---
PT DOWN TO XRAY FOR UGIS. PT WAS PREMEDICATED PER ORDERS FOR ALLERGY TO IODINE. PT HAS NO C/O PAIN AT THIS TIME AND NO CHANGE IN STATUS AT THIS TIME.
--- NOTE | 2022-12-01 19:56 | NUR ---
REMOVED NGT PATIENT TOLERATED PROCEDURE.
--- NOTE | 2022-12-01 20:00 | NUR ---
RECEIVED REPORT FROM NURSE QUINCY, PATIENT SITTING IN CHAIR, HAVING BOWEL MOVEMENT AFTER R/T CONTRAST GIVEN, RT CHEST PORT NS @ 125CC/HR, HOOKED ON TELEMTRY NGT ON LEFT NARE, PATENT GOOD PLACEMENT, BS 136, LYMPHEDEMA ON RT LEG, DENIES PAIN AT THIS TIME, ON FULL LIQUID CALL LIGHT IN REACH.
--- NOTE | 2022-12-02 | NUR ---
PATIENT SITTING IN BED, NOT IN DISTRESS, AWAKE, DOES NOT WANT TO GO TO BED YET R/T STILL HAVING BOWEL MOVEMENTS, CALL LIGHT IN REACH.
[2022-12-02 00:10] VITALS: BP 133/52
[2022-12-02 04:18] VITALS: BP 140/43
--- NOTE | 2022-12-02 04:50 | NUR ---
The patient said she has had 50 bowel movements through the night, she has been getting up every 10 minutes to use the bathroom
--- NOTE | 2022-12-02 05:02 | NUR ---
OBTAINED BLOOD THROUGH CHEST PORT PATIENT GIVEN PO FLUIDS, TOLERATING WELL, NO N/V, REMAINS ON NS @ 125CC/HR INFUSING WELL.
--- NOTE | 2022-12-02 05:03 | NUR ---
PATIENT STATED BOWEL MOVEMENT SMALL AMOUT, LIQUID, FLUIDS GIVEN.
[2022-12-02 05:16] LABS: BASO% 0.1 % (0-3); HEMATOCRIT 33.8 % (37.0-47.0); IMMATURE GRANULOCYTES 0.4 % (0.0-5.0); LYMPH% 6.7 % (15-41); MEAN CELL VOLUME 84.7 fL CALC (80.0-100.0); MEAN CORPUSCULAR HGB 25.1 pG CALC (26.0-32.0); MEAN CORPUSCULAR HGB CONC 29.6 g/dL CAL (32.0-36.0); MONO% 9.4 % (2-13); NEUT# 5.59 thou/uL (2.00-7.15); NEUT% 83.4 % (42-76); RED BLOOD COUNT 3.99 mill/uL (4.20-5.60); RED CELL DISTRI WIDTH 16.6 % (11.5-15.5)
[2022-12-02 05:41] LABS: ALBUMIN 3.7 g/dL (3.2-5.0); ALKALINE PHOSPHATASE 55 u/l (38-126); ANION GAP 13 (6-22 (CALC)); BUN 28 mg/dL (8-23); BUN/CREATININE RATIO 29 (12-20 (CALC)); CARBON DIOXIDE 23 mmol/l (22-30); CHLORIDE 105 mmol/l (95-108); GFR FOR AFR.AMER. > 60 ML/MIN (>=60 (CALC)); GFR OTHER RACES 55 ML/MIN (>=60 (CALC)); MAGNESIUM 2.2 mg/dL (1.6-2.3); POTASSIUM 4.4 mmol/l (3.5-5.1); SGOT/AST 29 u/l (9-36); SODIUM 137 mmol/l (137-146); TOTAL PROTEIN 6.2 g/dL (6.3-8.2)
[2022-12-02 05:42] LABS: BILIRUBIN, TOTAL 0.2 mg/dL (0.02-1.3)
[2022-12-02 07:08] VITALS: BP 116/48
--- NOTE | 2022-12-02 07:40 | NUR ---
RECEIVED REPORT FROM CLINICAL COORDINATOR. PT RESTING IN BED. ALL SAFETY MEASURES IN PLACE. VSS. NO NEEDS AT THIS TIME.
[2022-12-02 11:00] VITALS: BP 137/48
--- NOTE | 2022-12-02 13:26 | NUR ---
DEACCESSED POWER PORT. PT TOLERATED WELL. WAITING FOR RIDE HOME.
== END 2022-12-02 13:31 | disposition home or self-care (01) | DRG 390 ==
LOC: ED 08:04 → ED-I 12:18 → ED 13:26 → MS2 13:27
PROVIDERS: Family Medicine; Nurse Practitioner Family; ADMIT Surgery; ATTEND Surgery
DX: K56.609 Unspecified intestinal obstruction, unspecified as to partial versus complete obstruction (principal); I10 Essential (primary) hypertension; E11.9 Type 2 diabetes mellitus without complications; J44.9 Chronic obstructive pulmonary disease, unspecified; I89.0 Lymphedema, not elsewhere classified; K21.9 Gastro-esophageal reflux disease without esophagitis; Z79.84 Long term (current) use of oral hypoglycemic drugs; Z91.041 Radiographic dye allergy status; Z79.899 Other long term (current) drug therapy; Z90.710 Acquired absence of both cervix and uterus; Z85.42 Personal history of malignant neoplasm of other parts of uterus
CPT/HCPCS: J3420; Q9967; S0164